=== PATIENT | female | born 1935 | race Caucasian/White ===

== ENCOUNTER → 2016-11-07 | Outpatient (CLI) | payer MEDICARE, OTHER ==
[~2016-11-07] MED LIST: ALBUTEROL; ALBUTEROL MININEB NEB; ALDACTONE PO; ALPRAZOLAM PO; ASPIRIN PO; ASPIRIN81 M1 PO; ASPIRIN81 M2 PO; BAYER CHEWABLE81 MG PO; BISACODYL10 MG/SUPP PR; CELEXA PO; CITALOPRAM HBR40 MG PO; COMBIVENT MININEB INH; COREG PO; COREG12.5 MG PO; DIFLUCAN100 MG PO; FISH OIL 1,0001 EAC4; HALOBETASOL PRO TOP; IRON325 ( 652 PO; KCL PO; KEFLEX500 MG PO; KEPPRA500 M2 PO; KEPPRA750 M1 PO; LANSOPRAZOLE30 M3 PO; LASIX PO; LASIX80 MG PO; LIPITOR PO; LIPITOR20 MG PO; LISINOPRIL PO; LISINOPRIL20 MG PO; LOPRESSOR PO; LORTAB 101 TAB 10/5 PO; NITROGYLCERIN SUBLINGUAL; NITROSTAT0.4 MG SL; NORVASC2.5 MG PO; OMEGA 3 FISH1 CAP.EC PO; OMEGA FISH OIL PO; PERCOCET 5-3251 TAB PO; PERCOCET7.5 PO; PLAVIX PO; POSTURE600 MG PO; PREDNISONE10 MG PO; PREVACID PO; PROAIR HFA8.5 GM; PROAIR HFA8.5 GM IH; SPIRIVA18 MCG INH; SYMBICORT INH; TRICOR PO; TRICOR145 MG PO; ULTRAM PO; VICODIN 5/500 T1 TAB PO; VIMPAT1 EACH PO; VIMPAT50 MG PO; VITAMIN D1000 UNI1 PO; VITAMIN D1000 UNIT PO; VITAMIN D33000 UNIT PO; XANAX0.5 MG PO; ZAROXYLYN PO; ZYLOPRIM100 MG PO
[2016-11-07 14:34] LABS: BASOPHIL% 0.7 % (0-2.5); EOSINOPHIL# 0.1 X10e3 (0-0.7); EOSINOPHIL% 4.1 % (0.0-7.0); HEMATOCRIT 30.2 % (35.0-45.0); HEMOGLOBIN 9.5 gm/dL (12.0-16.0); LYMPHOCYTE# 0.7 X10e3 (1.0-3.5); LYMPHOCYTE% 23.4 % (17.0-45.0); MEAN CELL VOLUME 89.9 FL (83-96); MEAN CORPUSCULAR HEMOGLOBIN 28.4 PG (28-34); MEAN CORPUSCULAR HGB CONC 31.6 g/dL (30-36); MEAN PLATELET VOLUME 9.4 FL (6.5-11.5); MONOCYTE# 0.4 X10e3 (0-1.0); MONOCYTE% 13.4 % (3.0-12.0); NEUTROPHIL# 1.8 X10e3 (1.5-7.1); NEUTROPHIL% 58.4 % (40-75); PLATELET COUNT 176 X10e3 (140-420); RED BLOOD COUNT 3.35 X10e (3.90-5.30); RED CELL DISTRIBUTION WIDTH 16.8 % (11.0-15.5); WHITE BLOOD COUNT 3.1 X10e3 (4.0-10.5)
[2016-11-07 14:38] LABS: DIFF IND NO
[2016-11-07 15:36] LABS: BUN/CREATININE RATIO 33.63; CALCIUM SERUM 9.3 mg/dL (8.4-10.2); CREATININE SERUM 1.1 mg/dL (0.6-1.4); GLOM FILT RATE Estimated 46.4 mL/min (>60); POTASSIUM 4.2 mmol/L (3.5-5.1)
== END | disposition home or self-care (01) ==
LOC: CLAB 13:45
PROVIDERS: Internal Medicine Nephrology
DX: N18.3 Chronic kidney disease, stage 3 (moderate) (principal)
CPT/HCPCS: 36415; 80048; 82728; 83540; 83550; 85025

== ENCOUNTER → 2016-12-26 | Outpatient (CLI) | payer MEDICARE, OTHER | END | disposition home or self-care (01) | LOC: CSSDAY 09:00 | DX: N18.3 Chronic kidney disease, stage 3 (moderate) (principal); D63.1 Anemia in chronic kidney disease; Z79.899 Other long term (current) drug therapy | CPT/HCPCS: 96365; 96366; J1756 ==

== ENCOUNTER 2016-12-31 15:51 | Emergency (ER) | payer MEDICARE, OTHER ==
--- NOTE | ~2016-12-31 | CT4 ---
[facility] A Service of [facility] RADIOLOGY TEXT RESULTS PATIENT: MIRNA LEVY LOCATION: [facility] : 33 UNIT #: [id number] AGE: [address]: Joaquina Ross MD SEX: F ORDER DR: [id number] [facility]. [place], [place] [address] [id number] E MR#: [id number] Acc #: [id number] NAME: MIRNA LEVY. : 1935 SEX: F STUDY DATE/TIME: 12/31/2016 17:00 UNIT: [facility] ROOM: STUDY DESCRIPTION: CT Abd and Pelv Wo Cont Attending Physician: Joaquina Ross M.D. Ordering Physician: Joaquina Ross M.D. Primary Care Physician: Primary Care Physician No MEDICAL IMAGING REPORT This report is preliminary unless electronic signature is present EXAM CT of the abdomen and pelvis without contrast INDICATIONS Abdominal pain and nausea and vomiting since iron infusion [address] of the abdomen and pelvis was performed without contrast. Coronal and sagittal reformatted images were obtained. Compared with 08/26/2016. This CT exam was performed with one or more of the following radiation dose reduction techniques: Automatic exposure control, adjustment of mA and/or kV according to patient size, and iterative reconstruction. FINDINGS Images through the lung bases demonstrate a 1-cm nodule in the right lower lobe with some ground-glass component and some solid component. Cardiomegaly. The liver is unremarkable. Gallbladder unremarkable. Spleen unremarkable. Multiple bilateral renal cysts. Some of them are hyperdense. These probably represent cysts containing some hemorrhage or proteinaceous debris. The adrenal glands are unremarkable. The pancreas is unremarkable. Extensive atherosclerotic calcification of the aorta with ectasia and tortuosity. PELVIS: Small amount of free fluid. Diverticulosis. No evidence for diverticulitis. Appendix nonvisualized. Bone windows demonstrate extensive degenerative changes of the spine. IMPRESSION 1. There is no evidence for any acute finding within the abdomen or pelvis. 2. There is a 1-cm nodule in the base of the right lower lobe with mixed STS. [facility] A Service of [facility] RADIOLOGY TEXT RESULTS PATIENT: MIRNA LEVY LOCATION: [facility] #: [id number] : 33 UNIT #: [id number] AGE: [address]: Joaquina Ross MD SEX: F ORDER DR: solid and ground-glass component. There may have been a ground-glass nodule on the previous study. I would recommend a follow-up chest CT in 3 months to document stability or clearing of this nodule in the right lower lobe. 3. There are bilateral renal cysts, most of them are simple but some are hyperdense, which likely reflect some cysts with some hemorrhage or proteinaceous fluid. 4. Additional findings as described. Dictated by... Ambrosio Alba M.D. THIS IS AN ELECTRONICALLY VERIFIED REPORT Ambrosio Alba M.D. at 01/02/2017 3:25 PM EULALIA/leslie TD: 12/31/2016 23:49 JOB #: [id number] MEDICAL IMAGING REPORT Page 1 of 1 COPY
[2016-12-31 16:48] LABS: BASOPHIL% 0.9 % (0-2.5); EOSINOPHIL% 1.6 % (0.0-7.0); HEMATOCRIT 32.7 % (35.0-45.0); HEMOGLOBIN 10.3 gm/dL (12.0-16.0); LYMPHOCYTE# 0.4 X10e3 (1.0-3.5); LYMPHOCYTE% 13.5 % (17.0-45.0); MEAN CELL VOLUME 95.8 FL (83-96); MEAN CORPUSCULAR HEMOGLOBIN 30.3 PG (28-34); MEAN CORPUSCULAR HGB CONC 31.6 g/dL (30-36); MEAN PLATELET VOLUME 8.6 FL (6.5-11.5); MONOCYTE# 0.3 X10e3 (0-1.0); MONOCYTE% 8.7 % (3.0-12.0); NEUTROPHIL# 2.3 X10e3 (1.5-7.1); NEUTROPHIL% 75.3 % (40-75); PLATELET COUNT 166 X10e3 (140-420); RED BLOOD COUNT 3.41 X10e (3.90-5.30)
[2016-12-31 16:51] LABS: DIFF IND NO
[2016-12-31 17:11] LABS: ALBUMIN SERUM 4.2 g/dL (3.5-5.0); BILIRUBIN, DIRECT 0.1 mg/dL (0.0-0.2); BILIRUBIN,INDIRECT 0.2 mg/dL (0.0-0.9); BILIRUBIN,TOTAL 0.3 mg/dL (0.2-2.0); BUN/CREATININE RATIO 26.36; CALCIUM SERUM 9.2 mg/dL (8.4-10.2); CREATININE SERUM 1.1 mg/dL (0.6-1.4); GLOM FILT RATE Estimated 46.4 mL/min (>60); POTASSIUM 3.8 mmol/L (3.5-5.1); PROTEIN TOTAL SERUM 6.6 g/dL (6.0-8.3)
[2016-12-31 17:22] LABS: URINE SOURCE CLEAN CATCH
[2016-12-31 17:32] LABS: URINE APPEARANCE CLEAR; URINE BILIRUBIN NEG (NEG); URINE BLOOD NEG (NEG); URINE COLOR YELLOW; URINE GLUCOSE NEG (NEG); URINE KETONE NEG (NEG); URINE LEUKOCYTE ESTERASE NEG (NEG); URINE NITRATE NEG (NEG); URINE PROTEIN 2+ (NEG); URINE SPECIFIC GRAVITY 1.012 (1.003-1.035); URINE UROBILINOGEN 0.2 MG/DL (NEG)
[2016-12-31 17:36] LABS: CULTURE INDICATED? YES; U HYALINE CASTS AUWI 0-2 /[LPF]; URBCS1 AUWI 0-2 /[HPF] (0-2); URINE BACTERIA AUWI 1+ (NEGATIVE); URINE SQUAMOUS EPITHELIAL CELL NONE SEEN /[HPF]; UWBCS1 AUWI 0-2 (0-5)
== END 2016-12-31 18:15 | disposition home or self-care (01) ==
LOC: CED 15:51
PROVIDERS: Student in an Organized Health Care Education/Training Program
DX: R22.2 Localized swelling, mass and lump, trunk (principal); R19.7 Diarrhea, unspecified; R11.2 Nausea with vomiting, unspecified; G40.909 Epilepsy, unspecified, not intractable, without status epilepticus; I12.9 Hypertensive chronic kidney disease with stage 1 through stage 4 chronic kidney disease, or unspecified chronic kidney disease; N18.3 Chronic kidney disease, stage 3 (moderate); Z90.710 Acquired absence of both cervix and uterus; Z88.0 Allergy status to penicillin; Z88.8 Allergy status to other drugs, medicaments and biological substances
CPT/HCPCS: 36415; 74176; 80048; 80076; 81003; 82150; 83690; 85025; 87086; 96374; 96375; 99284; C9113; J2405

== ENCOUNTER → 2017-03-06 | Outpatient (CLI) | payer MEDICARE, OTHER ==
[2017-03-06 11:23] LABS: HEMATOCRIT 23.8 % (35.0-45.0); HEMOGLOBIN 7.7 gm/dL (12.0-16.0); MEAN CELL VOLUME 86.5 FL (83-96); MEAN CORPUSCULAR HEMOGLOBIN 28.1 PG (28-34); MEAN CORPUSCULAR HGB CONC 32.4 g/dL (30-36); MEAN PLATELET VOLUME 7.5 FL (6.5-11.5); RED BLOOD COUNT 2.76 X10e (3.90-5.30); RED CELL DISTRIBUTION WIDTH 15.9 % (11.0-15.5); WHITE BLOOD COUNT 3.4 X10e3 (4.0-10.5)
[2017-03-06 11:49] LABS: ALBUMIN SERUM 3.8 g/dL (3.5-5.0); BUN/CREATININE RATIO 34.66; CREATININE SERUM 1.5 mg/dL (0.6-1.4); GLOM FILT RATE Estimated 31.9 mL/min (>60); POTASSIUM 3.9 mmol/L (3.5-5.1)
== END | disposition home or self-care (01) ==
LOC: CLAB 10:46
PROVIDERS: Internal Medicine Nephrology
DX: N18.3 Chronic kidney disease, stage 3 (moderate) (principal)
CPT/HCPCS: 36415; 80069; 85027